=== PATIENT | male | born 1980 | race Caucasian/White ===

== ENCOUNTER 2020-07-28 20:18 | Emergency (ER) | payer MEDICAID ==
[~2020-07-28] VITALS: Ht 175.3 cm; Wt 156.0 kg
[2020-07-28 20:39] VITALS: Ht 175.3 cm; Wt 156.0 kg
[2020-07-28 22:37] VITALS: BP 161/109
== END 2020-07-28 22:37 | disposition home or self-care (01) ==
LOC: ED 20:18
DX: K08.89 Other specified disorders of teeth and supporting structures (principal); R51.9 Headache, unspecified; Z88.5 Allergy status to narcotic agent
CPT/HCPCS: Q0162